=== PATIENT | female | born 1935 | race Caucasian/White ===

== ENCOUNTER → 2018-08-07 | Outpatient (CLI) | payer MEDICARE, BC ==
[~2018-08-07] MED LIST: CEP500 PO; MELO-150 PO; MET50 PO; VITAMIN A PO; VITAMIN B PO; VITAMIN D PO; VITAMIN E PO
--- NOTE | 2018-08-07 10:09 | RADIOLOGY IMAGING REPORT ---
FACILITY: [facility] PATIENT NAME: Sherita Contreras : 1935 MR: [id number] V: [id number] EXAM DATE: ORDERING PHYSICIAN: JAMEE DAVID TECHNOLOGIST: Location: [facility] [place] Patient: Sherita Contrersa : 1935 Visit/Account:[id number] Date of Sevice: 08/07/2018 DEXA Scan Clinical history: Osteopenia. Comparison: DEXA scan from 08/03/2016.. LUMBAR SPINE: The bone mineral density (BMD) measured from L1-L4 correlates with a Z-score 7.5 and a T-score of 5. 0 which is Normal as defined by the World Health Organization. The corresponding risk of fracture in the lumbar spine is Not increased compared with a young adult reference population. This value has decreased by 7.5 % since the prior study. More than 5% change is considered significant. HIP: Bone mineral density (BMD) measured in the Left femoral neck region correlates with a Z-score 1.0 and a T-score of -1.6 which is osteopenia as defined by the World Health Organization. The correspond ing risk of fracture in the hip is increased compared with a young adult reference population. The to rafael hip value has decreased by 7.0 % since the prior study. More than 5% change is considered signif icant. Bone mineral density (BMD) measured in the Femoral Neck region measures 0.816 g/cm2. IMPRESSION: 1. Lumbar spine: Normal. There has been decrease in the bone mineral density since the previous exa m. 2. Left femoral neck region: Osteopenia. There has been decreased in the bone mineral density of th e total hip since the previous exam. 3. Femoral Neck: Bone Mineral Density is 0.816 g/cm2 The next DEXA scan of this patient should include the following sites: L1-L4 and the left hip. FRAX? WHO Fracture Risk Assessment Tool link: <http://www.shef.ac.uk/FRAX/tool.jsp?locationValue=9> PLEASE NOTE: 1) The World Health Organization defines low BMD as follows: T-score Normal > -1 Osteopenia < -1 and > -2.5 Osteoporosis < -2.5 without fractures Established osteoporosis < -2.5 with fractures 2) In general, you may wish to consider: Diagnosis Treatment Follow-up DEXA Normal BMD Prevention 2-3 years Osteopenia Prevention/therapy 1-2 years Osteoporosis Therapy Yearly 3) Fracture risk estimated from the T-score is more accurate for vertebral fractures (often spontane ous) than for hip fractures. Report Dictated By: Edwin Hernandez at 08/07/2018 10:01 AM Report E-Signed By: Edwin Hernandez at 08/07/2018 10:04 AM WSN:[email or web address]
== END ==
LOC: RAD 01:51
PROVIDERS: ATTEND Nurse Practitioner Family
DX: M85.88 Other specified disorders of bone density and structure, other site (principal)
CPT/HCPCS: 77080